=== PATIENT | female | born 1965 | race Caucasian/White ===

== ENCOUNTER 2016-10-30 09:33 | Emergency (ER) | payer OTHER ==
[2016-10-30] MEDS ORDERED: methylPREDNISolone SOD SUCC 125 MG/2 ML VIAL IVP ONE (10:30)
[2016-10-30] MEDS ORDERED: DIAZEPAM 10 MG/2 ML SYR IVP ONE (10:30)
--- NOTE | 2016-10-30 11:42 | EDPHY ---
H & P Time Seen by Provider: 10/30/16 10:08 HPI/ROS: CHIEF COMPLAINT: Back pain HISTORY OF PRESENT ILLNESS: 51-year-old female presents to the emergency department by private vehicle complaining of severe low back pain. Patient states that she was moving furniture on Sunday, 3 days ago, and she has had ongoing worsening lower back discomfort. She tried taking Flexeril at home without relief. She denies radicular symptoms in her lower legs. Denies bowel or bladder incontinence. Denies feelings of weakness in her lower legs. Her pain is significantly worse when she tries to move around or if she sits for prolonged period of time. Denies chest pain or difficulty breathing. She has had problems with her back in the past and has had similar pain although she feels that typically would have resolved by now. He denies abdominal pain. Denies neck pain. No other complaints. REVIEW OF SYSTEMS: Constitutional: No fever, no chills. Eyes: No double or blurry vision. ENT: No sore throat. Respiratory: No cough, no shortness of breath. Cardiac: No chest pain. Gastrointestinal: No abdominal pain, vomiting or diarrhea. Genitourinary: No dysuria. Musculoskeletal: Back pain as above. No neck pain. Skin: No rashes. Neurological: No headache. Past Medical/Surgical History: Ulcerative colitis Social History: Smoking Status: Current every day smoker Physical Exam: General Appearance: Alert, no distress. Eyes: Pupils equal and round. Extraocular motions are all intact. ENT: Mouth: Mucous membranes moist. Respiratory: No wheezing, rhonchi, or rales, lungs are clear to auscultation. Cardiovascular: Regular rate and rhythm. Gastrointestinal: Abdomen is soft and nontender, no masses, no rebound or guarding, bowel sounds normal. Neurological: Alert and oriented x 3, cranial nerves II through XII grossly intact Skin: Warm and dry, no rashes. Musculoskeletal: Nontender to palpate along the cervical, thoracic or lumbar spine. Neck is supple. Extremities: Full range of motion and no peripheral edema. Straight leg raise is negative bilaterally. I am able to passively lift her left in her right leg to about 45 degrees without pain. When she tries to actively lift her legs, this does cause more discomfort. She is able to fully flex her knees to her chest without difficulty. Her reflexes are 2+ and equal for lower extremities bilaterally. Psychiatric: Patient is oriented X 3, there is no agitation. Constitutional: Initial Vital Signs Temperature (C) 36.4 C 10/30/16 09:37 Heart Rate 125 H 10/30/16 09:37 Respiratory Rate 20 10/30/16 09:37 Blood Pressure 146/74 H 10/30/16 09:37 O2 Sat (%) 98 10/30/16 09:37 O2 Delivery Mode Room Air Allergies/Adverse Reactions: acetaminophen [From Percocet] Allergy (Verified 10/30/16 09:37) Vomiting codeine [Codeine] Allergy (Verified 10/30/16 09:37) Vomiting hydrocodone [Hydrocodone] Allergy (Verified 10/30/16 09:37) Vomiting oxycodone HCl [From Percocet] Allergy (Verified 10/30/16 09:37) Vomiting Home Medications: Medication Instructions Recorded Diazepam [Valium] 5 mg PO TIDPRN PRN #15 tab 10/30/16 Flexeril 10/30/16 methylPREDNISolone [Medrol Dose 1 each PO AD #1 ea 10/30/16 Neptali] methylPREDNISolone [Medrol Dose 1 each PO AD #1 ea 10/30/16 Neptali] Medical Decision Making ED Course/Re-evaluation: 51-year-old female presents to the emergency department with low back discomfort. She has no focal neurologic findings. She has no evidence of footdrop. No reported bowel or bladder incontinence. Patient had an IV placed and was given 5 mg of IV Valium as well as Solu-Medrol 125 mg IV. She was feeling much better. She was comfortable being discharged home with prescription for Solu-Medrol. She was also given prescription for Medrol Dosepak which she may start tomorrow. Patient was instructed to return to the emergency department sooner if she developed worsening back pain, feelings of weakness in her lower legs, or if she felt worse in any way. Differential Diagnosis: Back pain including but not limited to muscular pain, herniated disc, spine fracture, intra-abdominal causes and urinary tract infection. - Data Points Medications Given: Discontinued Medications Diazepam (Valium Injection) 5 mg IVP EDNOW ONE Stop: 10/30/16 10:31 Last Admin: 10/30/16 10:53 Dose: 5 mg Methylprednisolone Sodium Succinate (Solu-Medrol) 125 mg IVP EDNOW ONE Stop: 10/30/16 10:31 Last Admin: 10/30/16 10:53 Dose: 125 mg Departure - Departure Disposition: Home, Routine, Self-Care Clinical Impression: Low back strain Qualifiers: Encounter type: initial encounter Qualified Code(s): S39.012A - Strain of muscle, fascia and tendon of lower back, initial encounter Condition: Good Instructions: Low Back Strain (ED) Additional Instructions: Continue Aleve as directed. Medrol Dosepak as directed for 1 week. Valium as needed for muscular spasm. Activity as tolerated. He may also try over-the- counter lidocaine patches for pain relief. Return to the emergency department if you develop bowel or bladder incontinence, weakness in your lower legs, or if you feel worse in any way. Avoid any heavy lifting until your pain has completely resolved. Referrals: Severino Rain MD [Medical Doctor] - 5-7 days, call for appt. (Neurosurgeon on- call) Prescriptions: Diazepam [Valium] 5 mg PO TIDPRN PRN #15 tab PRN Reason: Spasms methylPREDNISolone [Medrol Dose Neptali] 1 each PO AD #1 ea methylPREDNISolone [Medrol Dose Neptali] 1 each PO AD #1 ea
[2016-10-30 11:46] VITALS: BP 125/70; PULSE 67; RESP 16; TEMP 98.1; O2SAT 97
== END 2016-10-30 11:46 | disposition home or self-care (01) ==
DX: S39.012A Strain of muscle, fascia and tendon of lower back, initial encounter (principal); F17.200 Nicotine dependence, unspecified, uncomplicated; X58.XXXA Exposure to other specified factors, initial encounter
CPT/HCPCS: 96374

== ENCOUNTER 2016-11-27 09:53 | Emergency (ER) | payer OTHER ==
[2016-11-27 09:59] VITALS: TEMP 98.1
--- NOTE | 2016-11-27 10:19 | EDPHY ---
H & P Stated Complaint: l sided facial swelling HPI/ROS: CHIEF COMPLAINT: Facial swell HISTORY OF PRESENT ILLNESS: Patient complains of left-sided facial swelling over the past few days. It is involving the left upper lip only. No redness, pain or swelling elsewhere. No chest pain or shortness of breath. No headache, fever or chills. No difficulty with vision or eye pain. No left-sided weakness or sensory changes. No difficulty with speech. No other associated complaints or modifying factors. REVIEW OF SYSTEMS: Ten systems reviewed and are negative unless otherwise noted in the HPI PAST MEDICAL HISTORY: Denies any medical history SOCIAL HISTORY: Current smoker FAMILY HISTORY: Noncontributory EXAMINATION General Appearance: Alert, no distress Head: normocephalic, atraumatic Eyes: Pupils equal and round, no conjunctival pallor or injection ENT, Mouth: No trismus. No swelling of the tongue or lips. No abnormality of the floor of the mouth. Uvula midline. Airway widely patent. Mucous membranes moist. There is mild edema the area just adjacent to and above the left upper lip. There is no rash or vesicles. There is no rash or lesions of the facial nerve distribution. No rash or lesions of the trigeminal nerve distribution. Neck: Normal inspection, supple, non-tender Respiratory: Lungs are clear to auscultation Cardiovascular: Regular rate and rhythm. No murmur Gastrointestinal: Abdomen is soft and nontender Back: non-tender, no bony abnormalities Neurological: GCS 15. Cranial nerves 2-12 grossly intact. No facial droop. A&O , nonfocal, normal gait Skin: Warm and dry, no rash. No vesicles or lesions. Extremities: Nontender, no pedal edema Psychiatric: Mood and affect normal DIFFERENTIAL DIAGNOSES: Including but not limited to edema, zoster, varicella, herpetic rash MDM: 10:18 a.m. Left upper lip and left cheek swelling. There is no evidence of angioedema. There is no erythema. No fluctuance. No cellulitis. Vital signs were well within normal limits. There is no neuro abnormality that would suggest Devine's palsy or stroke. Laboratory studies have been ordered. I suspect this is a viral etiology. 11:40 a.m. Mild edema to the left upper lip that I feel may be a precursor to zoster outbreak. There are no lesions at this time. She has no pain. There is no abnormal finding of any kind other than mild edema of the lip. I will trial her on antiviral and have her follow up with primary care physician. I have ordered HSV and VZV and have instructed her to follow up with primary care physician on these laboratory results. Return here or primary care and wound check for 2 days. Return to the ER immediately for any lesions or redness of the forehead, nose or around the eye. Return here for any eye pain or changes in vision. SUPERVISION: This patient was independently evaluated without direct examination by the attending physician. Case was discussed with attending physician. Source: Patient Exam Limitations: No limitations - Personal History LMP (Females 10-55): Hysterectomy Current Tetanus/Diphtheria Vaccine: Unsure - Medical/Surgical History Hx Asthma: No Hx Chronic Respiratory Disease: No Hx Diabetes: No Hx Cardiac Disease: No Hx Renal Disease: No Hx Cirrhosis: No Hx Alcoholism: No Hx HIV/AIDS: No Hx Splenectomy or Spleen Trauma: No Other PMH: UC back inj years ago - Social History Smoking Status: Current every day smoker Constitutional: Initial Vital Signs Temperature (C) 98.1 F 11/27/16 09:57 Heart Rate 83 11/27/16 09:57 Respiratory Rate 16 11/27/16 09:57 Blood Pressure 124/93 H 11/27/16 09:57 O2 Sat (%) 97 11/27/16 09:57 O2 Delivery Mode Room Air Allergies/Adverse Reactions: acetaminophen [From Percocet] Allergy (Verified 11/27/16 09:56) Vomiting codeine [Codeine] Allergy (Verified 11/27/16 09:56) Vomiting hydrocodone [Hydrocodone] Allergy (Verified 11/27/16 09:56) Vomiting oxycodone HCl [From Percocet] Allergy (Verified 11/27/16 09:56) Vomiting Home Medications: Medication Instructions Recorded Omeprazole 11/27/16 Valacyclovir HCl [Valtrex] 1,000 mg PO TID #21 tab 11/27/16 Medical Decision Making - Data Points Laboratory Results: Laboratory Results 11/27/16 10:40 11/27/16 10:40 11/27/16 11/27/16 11/27/16 10:40 10:40 10:40 WBC 6.14 10^3/uL 10^3/uL (3.80-9.50) RBC 5.19 10^6/uL 10^6/uL (4.18-5.33) Hgb 15.5 g/dL g/dL (12.6-16.3) Hct 46.4 % % (38.0-47.0) MCV 89.4 fL fL (81.5-99.8) MCH 29.9 pg pg (27.9-34.1) MCHC 33.4 g/dL g/dL (32.4-36.7) RDW 12.4 % % (11.5-15.2) Plt Count 235 10^3/uL 10^3/uL (150-400) MPV 10.4 fL fL (8.7-11.7) Neut % (Auto) 52.4 % % (39.3-74.2) Lymph % (Auto) 38.6 % % (15.0-45.0) [place] % (Auto) 6.4 % % (4.5-13.0) Eos % (Auto) 1.6 % % (0.6-7.6) Baso % (Auto) 0.8 % % (0.3-1.7) Nucleat RBC Rel Count 0.0 % % (0.0-0.2) Absolute Neuts (auto) 3.22 10^3/uL 10^3/uL (1.70-6.50) Absolute Lymphs (auto) 2.37 10^3/uL 10^3/uL (1.00-3.00) Absolute Monos (auto) 0.39 10^3/uL 10^3/uL (0.30-0.80) Absolute Eos (auto) 0.10 10^3/uL 10^3/uL (0.03-0.40) Absolute Basos (auto) 0.05 10^3/uL 10^3/uL (0.02-0.10) Absolute Nucleated RBC 0.00 10^3/uL 10^3/uL (0-0.01) Immature Gran % 0.2 % % (0.0-1.1) Immature Gran # 0.01 10^3/uL 10^3/uL (0.00-0.10) ESR 7 MM/HR MM/HR (0-30) Sodium 142 mEq/L mEq/L (134-144) Potassium 4.3 mEq/L mEq/L (3.5-5.2) Chloride 110 mEq/L mEq/L (97-110) Carbon Dioxide 22 mEq/l mEq/l (22-31) Anion Gap 10 mEq/L mEq/L (8-16) BUN 15 mg/dL mg/dL (7-23) Creatinine 0.8 mg/dL mg/dL (0.6-1.0) Estimated GFR > 60 Glucose 88 mg/dL mg/dL (70-100) Calcium 9.7 mg/dL mg/dL (8.5-10.4) C-Reactive Protein < 5.0 mg/L mg/L (<10.0) HSV I&II IgM Ab Pending Departure - Departure Disposition: Home, Routine, Self-Care Clinical Impression: Lip edema Condition: Good Instructions: Edema (ED) Additional Instructions: 1. Follow up with primary care physician for recheck in 2 days 2. Return here for recheck in 2 days if unable to see primary care physician 3. Return to the ER for any rash anywhere on the face, nose or surrounding the eyes 4. Return to ER for any pain in the eyes or visual changes Referrals: Casey Melvin MD [Primary Care Provider] - As per Instructions Prescriptions: Valacyclovir HCl [Valtrex] 1,000 mg PO TID #21 tab
[2016-11-27 10:52] LABS: % IMMATURE GRANULYOCYTES 0.2 % (0.0-1.1); ABSOLUTE IMMATURE GRANULOCYTES 0.01 10^3/uL (0.00-0.10); ADD DIFF? NO; ADD MORPH? NO; ADD SCAN? NO; ATYPICAL LYMPHOCYTE FLAG 30 (0-99); FRAGMENT RBC FLAG 0 (0-99); HEMATOCRIT 46.4 % (38.0-47.0); HEMOGLOBIN 15.5 g/dL (12.6-16.3); LEFT SHIFT FLG 0 (0-99); LIPEMIA HEMOLYSIS FLAG 80 (0-99); MEAN CELL HEMOGLOBIN 29.9 pg (27.9-34.1); MEAN CELL HEMOGLOBIN CONCENTR. 33.4 g/dL (32.4-36.7); MEAN CELL VOLUME 89.4 fL (81.5-99.8); MEAN PLATELET VOLUME 10.4 fL (8.7-11.7); PLATELET CLUMPS FLAG 0 (0-99); PLATELET COUNT 235 10^3/uL (150-400); RED BLOOD CELL COUNT 5.19 10^6/uL (4.18-5.33); RED CELL DISTRIBUTION WIDTH 12.4 % (11.5-15.2)
[2016-11-27 11:09] LABS: ANION GAP 10 mEq/L (8-16); C-REACTIVE PROTEIN < 5.0 mg/L (<10.0); CALCIUM 9.7 mg/dL (8.5-10.4); CARBON DIOXIDE 22 mEq/l (22-31); CHLORIDE 110 mEq/L (97-110); CREATININE 0.8 mg/dL (0.6-1.0); GLOMERULAR FILTRATION RATE > 60; GLUCOSE 88 mg/dL (70-100); POTASSIUM 4.3 mEq/L (3.5-5.2); SEDIMENTATION RATE 7 MM/HR (0-30); SODIUM 142 mEq/L (134-144)
[2016-11-27 12:03] VITALS: BP 122/77; PULSE 78; RESP 18; O2SAT 95
== END 2016-11-27 12:03 | disposition home or self-care (01) ==
DX: R60.9 Edema, unspecified (principal); F17.200 Nicotine dependence, unspecified, uncomplicated
CPT/HCPCS: 86694-90